=== PATIENT | female | born 1995 | race Two or more races ===

== ENCOUNTER 2021-02-03 10:56 | Emergency (ER) | payer OTHER ==
[~2021-02-03] VITALS: Ht 157.5 cm; Wt 60.8 kg
[2021-02-03] MEDS ORDERED: ZOFRAN8 MG PO (16:42)
== END 2021-02-03 17:09 | disposition home or self-care (01) ==
LOC: ER 10:56
DX: D69.6 Thrombocytopenia, unspecified (principal); E86.0 Dehydration; R74.8 Abnormal levels of other serum enzymes; Z03.818 Encounter for observation for suspected exposure to other biological agents ruled out; M25.50 Pain in unspecified joint; B34.0 Adenovirus infection, unspecified

== ENCOUNTER 2021-02-05 10:24 | Emergency (ER) | payer OTHER ==
[~2021-02-05] VITALS: Ht 157.5 cm; Wt 60.8 kg
[~2021-02-05 10:24] MED LIST: ZOFRAN8 MG PO
[2021-02-05] MEDS ORDERED: PROTONIX40 MG PO (17:15)
[2021-02-05] MEDS ORDERED: CARAFATE1 GM/10 ML PO (17:15)
== END 2021-02-05 17:47 | disposition home or self-care (01) ==
LOC: ER 10:24
DX: B34.9 Viral infection, unspecified (principal); D69.6 Thrombocytopenia, unspecified; R94.5 Abnormal results of liver function studies; A90 Dengue fever [classical dengue]; Z03.818 Encounter for observation for suspected exposure to other biological agents ruled out